=== PATIENT | female | born 1990 | race American Indian/Alaskan Native ===

== ENCOUNTER → 2018-06-17 15:22 | Outpatient (CLI) | payer OTHER, SELFPAY ==
[2018-06-17 16:37] LABS: HCG Quantitative /Beta subunit 2097.1 mIU/mL
== END ==
PROVIDERS: PCP Specialist; Visit Provider Specialist
DX: O20.9 Hemorrhage in early pregnancy, unspecified (principal)
CPT/HCPCS: 36415; 84702

== ENCOUNTER → 2018-06-19 09:47 | Outpatient (CLI) | payer OTHER, SELFPAY ==
[2018-06-19 11:14] LABS: HCG Quantitative /Beta subunit 1164.6 mIU/mL
== END ==
PROVIDERS: PCP Specialist; Visit Provider Specialist
DX: O20.9 Hemorrhage in early pregnancy, unspecified (principal)
CPT/HCPCS: 36415; 84702

== ENCOUNTER → 2019-01-18 12:00 | Outpatient (CLI) | payer OTHER, MEDICAID, SELFPAY ==
[2019-01-22 11:37] LABS: AFP, Serum 32.6 ng/mL; Calc Gestational Age 17.4; Cigarette Smoker NOT GIVEN; Donated Egg NOT GIVEN; Donor Egg Age NOT GIVEN; Estriol, Free 0.88 ng/mL; Inhibin A, Dimeric 151 pg/mL; Maternal Ethnicity OTHER; Maternal Weight 234 lbs; Number of Fetuses NOT GIVEN; Previous Pregnancy Down Syndro NOT GIVEN; hCG, MoM 1.29
== END ==
PROVIDERS: PCP Specialist; Visit Provider Specialist
DX: Z34.02 Encounter for supervision of normal first pregnancy, second trimester (principal); Z3A.17 17 weeks gestation of pregnancy
CPT/HCPCS: 36415; 82105; 82677; 84702; 86336

== ENCOUNTER → 2019-02-16 09:21 | Outpatient (CLI) | payer OTHER, MEDICAID, SELFPAY ==
[2019-02-16 10:53] LABS: Appearance Urine UA CLEAR; Bilirubin Urine UA NEGATIVE (NEGATIVE); Color Urine UA YELLOW; Glucose Urine UA NEGATIVE (Negative); Ketones Urine UA NEGATIVE (NEGATIVE); Leukocyte Esterase Urine UA NEGATIVE (NEGATIVE); Nitrite Urine UA NEGATIVE (Negative); Occult Blood Urine UA NEGATIVE (Negative); Protein Urine UA NEGATIVE (Negative); Specific Gravity Urine UA 1.015 (1.000-1.035); Urobilinogen Urine UA 0.2 E.U./dL (0.2)
[2019-02-16 11:09] LABS: Add Manual Diff / Slide Review NO; Basophils Absolute Auto 0 /uL (0-100); Basophils Percent Auto 0.3 % (0-2); Eosinophils Absolute Auto 0 /uL (0-450); Eosinophils Percent Auto 0.4 % (2-4); Hematocrit 38.6 % (36-46); Hemoglobin 13.3 g/dL (12.0-16.0); Lymphocytes Absolute Auto 1400 /uL (1100-4500); Lymphocytes Percent Auto 14.2 % (25-40); Mean Corpuscular HGB Conc 34.5 % (30-36); Monocytes Absolute Auto 500 /uL (0-900); Monocytes Percent Auto 5.4 % (3-14); Neutrophils Absolute Auto 7900 /uL (1500-7000); Neutrophils Percent Auto 79.7 % (50-75); Platelet Count 284 X10^3/uL (150-400); Red Blood Cell Count 4.28 X10^6/uL (4.0-5.2); Red Cell Distribution Width 13.8 % (11.6-14.8); White Blood Cell Count 9.9 X10^3/uL (4.5-11.0)
[2019-02-16 11:26] LABS: GTT (PREG) 1 Hour PP 50gm Dose 66 mg/dL (76-139)
[2019-02-16 11:58] LABS: Hepatitis B Surface Antigen NEGATIVE s/c (NEGATIVE); Rubella Antibody IgG 25.1 IU/mL (>15)
[2019-02-16 12:14] LABS: HIV 1 and 2 Antibody NEGATIVE (NEGATIVE); Hep C Virus Ab w/Reflex Quant NEGATIVE s/c (NEGATIVE)
[2019-02-17 22:49] LABS: RPR Screen Nonreactive (Nonreactive)
== END ==
PROVIDERS: PCP Specialist; Visit Provider Specialist
DX: Z34.92 Encounter for supervision of normal pregnancy, unspecified, second trimester (principal)
CPT/HCPCS: 36415; 80055; 81003; 82950; 85014; 85018; 86703; 86787; 86803; 86850; 86900; 86901; 87086

== ENCOUNTER → 2019-04-26 11:03 | Outpatient (ROUT) | payer OTHER, MEDICAID, SELFPAY ==
[2019-04-26 11:11] LABS: Add Manual Diff / Slide Review NO; Basophils Absolute Auto 0 /uL (0-100); Basophils Percent Auto 0.3 % (0-2); Eosinophils Absolute Auto 100 /uL (0-450); Eosinophils Percent Auto 1.2 % (2-4); Hematocrit 40.1 % (36-46); Hemoglobin 13.5 g/dL (12.0-16.0); Lymphocytes Absolute Auto 1600 /uL (1100-4500); Mean Corpuscular HGB Conc 33.6 % (30-36); Mean Corpuscular Volume 89.4 fL (80-100); Monocytes Absolute Auto 600 /uL (0-900); Monocytes Percent Auto 5.5 % (3-14); Neutrophils Absolute Auto 7900 /uL (1500-7000); Platelet Count 288 X10^3/uL (150-400); Red Blood Cell Count 4.49 X10^6/uL (4.0-5.2); White Blood Cell Count 10.3 X10^3/uL (4.5-11.0)
[2019-04-26 11:17] LABS: Alanine Aminotransferase 15 IU/L (9-52); Albumin 2.8 g/dL (3.5-5.0); Albumin Globulin Ratio 0.8 (1.0-2.8); Alkaline Phosphatase 124 U/L (38-126); Aspartate Aminotransferase 21 IU/L (14-36); Bilirubin Total 0.7 mg/dL (0.2-1.3); Blood Urea Nitrogen 7 mg/dL (7-17); Calcium 8.4 mg/dL (8.4-10.2); Carbon Dioxide 20 mmol/L (22-32); Chloride 111 mmol/L (98-107); Estimated Glomerular Filt Rate > 60.0 mL/min (>60); Globulin 3.3 g/dL (1.7-4.1); Glucose 84 mg/dL (70-100); HEMOLYSIS < 15 (0-50); Potassium 4.1 mmol/L (3.4-5.1); Sodium 136 mmol/L (137-145); Total Protein 6.1 g/dL (6.3-8.2)
== END ==
PROVIDERS: PCP Specialist; Visit Provider Physician Assistant
DX: O13.9 Gestational [pregnancy-induced] hypertension without significant proteinuria, unspecified trimester (principal)
CPT/HCPCS: 80053; 84550; 85025

== ENCOUNTER 2019-05-03 13:29 | Outpatient (CLI) | payer OTHER, MEDICAID, SELFPAY | END 2019-05-03 14:05 | disposition home or self-care (01) | LOC: LABOR 14:06 → OB 05-05 12:44 | PROVIDERS: PCP Specialist; Visit Provider Specialist | DX: O26.893 Other specified pregnancy related conditions, third trimester (principal); R10.9 Unspecified abdominal pain; Z3A.32 32 weeks gestation of pregnancy | CPT/HCPCS: 59025; G0378; G0379 ==

== ENCOUNTER → 2019-06-02 10:51 | Outpatient (CLI) | payer MEDICAID, OTHER, SELFPAY ==
[2019-06-03 13:32] LABS: Strep Grp B PCR POS for Grp B Strep
== END ==
PROVIDERS: PCP Specialist; Visit Provider Specialist
DX: Z34.03 Encounter for supervision of normal first pregnancy, third trimester (principal); Z3A.36 36 weeks gestation of pregnancy
CPT/HCPCS: 87186; 87653

== ENCOUNTER 2019-06-24 08:42 | Inpatient (IN) | payer OTHER, MEDICAID, SELFPAY ==
[2019-06-24 10:25] LABS: Add Manual Diff / Slide Review NO; Basophils Absolute Auto 0 /uL (0-100); Basophils Percent Auto 0.4 % (0-2); Eosinophils Absolute Auto 0 /uL (0-450); Eosinophils Percent Auto 0.1 % (2-4); Hemoglobin 12.6 g/dL (12.0-16.0); Lymphocytes Absolute Auto 1300 /uL (1100-4500); Lymphocytes Percent Auto 12.3 % (25-40); Mean Corpuscular HGB Conc 33.2 % (30-36); Mean Corpuscular Hemoglobin 27.2 PG (26-34); Monocytes Absolute Auto 400 /uL (0-900); Monocytes Percent Auto 3.8 % (3-14); Neutrophils Absolute Auto 8900 /uL (1500-7000); Neutrophils Percent Auto 83.4 % (50-75); Platelet Count 285 X10^3/uL (150-400); Red Blood Cell Count 4.63 X10^6/uL (4.0-5.2); Red Cell Distribution Width 13.8 % (11.6-14.8); White Blood Cell Count 10.7 X10^3/uL (4.5-11.0)
[2019-06-24] MEDS: CLINDAMYCIN 900 MG/50 ML PIGGYBACK 50 MG IV (10:30)
--- NOTE | 2019-06-24 10:35 | PM.OBHP.1 ---
OB HPI Date/Time Date of admission: 06/24/19 Date Patient Seen: 06/24/19 Time Patient Seen: 10:36 History of Present Condition Chief complaint: obs of labor : 4 Para: 1 Estimated Date of Delivery: 06/25/19 Estimated Gestational Age (weeks): 39 Narrative: Ilana Marsh is a 28 year old female admitted in active labor History of Present care: good care, initiated at week # (13), number of visits (11) and pounds weight gain (23) Dating criteria: LMP confirmed by 1st trimester US Ultrasounds: normal mid trimester US Obstetrical complications: none Medical complications: none Preadmission Labs Blood type: O (+) positive -: Antibody screen: negative, GBS status: positive, HBsAG: negative, HIV: negative and RPR/VDLR: negative -: Chlamydia screen: not detected and Gonorrhea screen: not detected -: Rubella: immune and Varicella: immune HCAB: negative PAP: Normal Quad screen: Normal 1 hr GTT: 66 Prior (ies) History: 07/2016 and 03/2018 SAB 10/05/17 6 lb 11 oz male vaginal delivery Evaluation Evaluation Laboratory results: Laboratory Tests 06/24/19 10:15 WBC 10.7 RBC 4.63 Hgb 12.6 Hct 38.0 MCV 82.0 MCH 27.2 MCHC 33.2 RDW 13.8 Plt Count 285 Neut % (Auto) 83.4 H Lymph % (Auto) 12.3 L [place] % (Auto) 3.8 Eos % (Auto) 0.1 L Baso % (Auto) 0.4 Neut # (Auto) 8900 H Lymph # (Auto) 1300 [place] # (Auto) 400 Eos # (Auto) 0 Baso # (Auto) 0 PFSH Medical History (Updated 06/23/18 @ 17:18 by Fang Gallo) Anxiety (Chronic) Surgical History (Updated 06/23/18 @ 17:18 by Fang Gallo) History of tonsillectomy (Resolved 02/2016) Social History Smoking Status: Current every day smoker Social History Smoking Status: Current every day smoker Meds Home Medications and Allergies Home Medications Medication Instructions Recorded Confirmed Type Vitamins (PRENAVITE) 1 tab PO QDAY #0 tab 08/17/16 History Allergies Allergy/AdvReac Type Severity Reaction Status Date / Time amoxicillin Allergy Unknown Hives Unverified 08/13/18 16:26 Sulfa (Sulfonamide Allergy Unknown Hives Unverified 08/13/18 16:26 Antibiotics) Review of Systems Review of Systems Narrative: Patient denies leakage of fluid. No signs or symptoms of preeclampsia. Good movement. ROS Unobtainable: All systems reviewed & are unremarkable except as noted in HPI and below Exam Vital Signs (past 8 hours): Blood pressure 106/72, pulse 73 Narrative Exam Narrative: HEENT exam within normal limits. Lungs are clear to auscultation and percussion. Heart is regular rate and rhythm no S3-S4 or murmurs. Abdomen is soft, nontender. Abdomen is gravid. Extremities with trace edema and nontender. Objective Labs Result Diagrams: 06/24/19 10:15 Labs: Laboratory Results - last 24 hr 06/24/19 10:15 WBC 10.7 RBC 4.63 Hgb 12.6 Hct 38.0 MCV 82.0 MCH 27.2 MCHC 33.2 RDW 13.8 Plt Count 285 Neut % (Auto) 83.4 H Lymph % (Auto) 12.3 L [place] % (Auto) 3.8 Eos % (Auto) 0.1 L Baso % (Auto) 0.4 Neut # (Auto) 8900 H Lymph # (Auto) 1300 [place] # (Auto) 400 Eos # (Auto) 0 Baso # (Auto) 0 Assessment and Plan Assessment and Plan Assessment and Plan narrative: Term in active labor. Patient with positive group B strep culture with penicillin allergy so receiving clindamycin.
--- NOTE | 2019-06-24 13:32 | P.PCNOB_ITS ---
Labor & Delivery Delivery date: 06/24/19 Intrapartal events: None Cervical ripening method: none Induction method: none Delivery monitor: external FHT and external uterine Route of delivery: L&D Laceration Description: None Estimated blood loss (mL): 150 Anesthesia type: Epidural Narrative: Patient arrived in Labor and delivery in active labor. She progressed normally. heart tones category 1 to category 2 throughout labor. She delivered spontaneously, over an intact perineum. Double nuchal cord was released after delivery the baby. The infant was placed on the maternal abdomen. After the cord stopped pulsating the cord was clamped, cut, and cord bloods obtained. The placenta delivered spontaneously, intact, with 3 vessels. Both and mother doing well. [place] Baby 1: gender: Female Presentation: vertex position: Right Occiput Anterior Placenta delivery description: Spontaneous cord vessel description: Nuchal Cord (twice) score (1 min): 8 score (5 min): 9 Plan for aftercare: Routine care
[2019-06-24 14:30] VITALS: BP 114/60
[2019-06-24] MEDS: IBUPROFEN 600 MG TABLET PO ×2 (15:00→20:10)
[2019-06-25] MEDS: IBUPROFEN 600 MG TABLET PO ×2 (02:12→08:22)
--- NOTE | 2019-06-25 07:50 | PM.OBDS.1 ---
Discharge Providers Provider Date of admission: 06/24/19 08:42 Discharge Date: 06/25/19 Primary care physician: Esther Reddy MD Consults: 06/24/19 14:29 Consult to Coffee Maker Servicer Routine Comment: Discharge provider: Esther Reddy MD Summary Hospital Course Date Patient Seen: 06/25/19 Time Patient Seen: 07:50 Procedures: Epidural catheter, vaginal delivery Hospital Course: Patient arrived on Labor and delivery in active labor. She received an epidural catheter for pain control. She had a vaginal delivery with no lacerations. Both infant mother doing well. Blood pressure 108/77, pulse 69, temperature 97.4?. Patient's abdomen is soft, nontender. Uterus is firm, at U, nontender. Mild lochia. Extremities without edema and nontender. Patient is Rh positive and rubella immune Peripartum Data Delivery Method: Natural Vaginal Laceration description: None Procedures: Epidural catheter, vaginal delivery complications: none 1: Gender: Female Disposition of : home Discharge Diagnosis (1) Vaginal delivery: Status: Acute (2) Acute blood loss anemia: Status: Acute Status at Discharge Cognitive/behavioral status at discharge: oriented Functional status at discharge: independent ambulation Overall status at discharge: patient is progressing back to baseline Time Spent with Patient Time attestation: Total time spent providing and/or coordinating discharge services: Time spent: Less than 30 minutes Objective Labs Result Diagrams: 06/25/19 06:32 Labs: Laboratory Results - last 24 hr 06/24/19 06/24/19 06/25/19 10:15 10:15 06:32 WBC 10.7 RBC 4.63 Hgb 12.6 10.0 L Hct 38.0 30.0 L MCV 82.0 MCH 27.2 MCHC 33.2 RDW 13.8 Plt Count 285 Neut % (Auto) 83.4 H Lymph % (Auto) 12.3 L [place] % (Auto) 3.8 Eos % (Auto) 0.1 L Baso % (Auto) 0.4 Neut # (Auto) 8900 H Lymph # (Auto) 1300 [place] # (Auto) 400 Eos # (Auto) 0 Baso # (Auto) 0 Blood Type O Positive Antibody Screen Negative Discharge Plan Discharge Plan Patient Disposition: Home Discharge Med Rec/Prescriptions Prescriptions: New ibuprofen 600 mg Tablet 600 mg PO Q6HR PRN (Reason: Pain, Mild (1-3)) Qty: 20 RF: 0 ferrous gluconate 324 mg (37.5 mg iron) tablet 324 mg PO DAILY Qty: 30 RF: 0 Continued Vitamins (PRENAVITE) 1 tab PO QDAY Qty: 0 RF: 0 Follow up/Referrals: Esther Reddy MD [Primary Care Provider] - 1 Month Provider Discharge Instructions Diet: Regular Activity: Nothing in vagina for 4 weeks Skin/Wound/Dressing Care Report to your healthcare provider any signs of infection, such as:: chills, fever and increased pain Discharge Data Primary Care Provider: Esther Reddy Attending Provider: Esther Reddy Admit Date/Time: 06/24/19 08:42
[2019-06-25 09:52] VITALS: BP 119/86; PULSE 80; RESP 16; TEMP 36.4
== END 2019-06-25 14:35 | disposition home or self-care (01) | DRG 806 ==
PROVIDERS: Admitting Provider Specialist; PCP Specialist; Visit Provider Specialist
DX: O99.824 Streptococcus B carrier state complicating childbirth (principal); D62 Acute posthemorrhagic anemia; Z37.0 Single live birth; O69.81X0 Labor and delivery complicated by cord around neck, without compression, not applicable or unspecified; O99.334 Smoking (tobacco) complicating childbirth; Z3A.39 39 weeks gestation of pregnancy
CPT/HCPCS: 01967; 36415; 59050; 59400; 85014; 85018; 85025; 86850; 86900; 86901; G0379

== ENCOUNTER → 2020-07-21 14:48 | Outpatient (CLI) | payer OTHER, MEDICAID, SELFPAY ==
--- NOTE | 2020-07-21 | DI.US.S_ITS ---
PROCEDURE: US PELVIC COMPLETE INDICATIONS: Right lower quadrant pain TECHNIQUE: Real-time scanning was performed of the pelvic organs, with image documentation. Additional endovaginal scanning was necessary due to incomplete visualization of the adnexal and endometrial structures by transabdominal scanning. COMPARISON: [facility], US, PELVIC COMPLETE, 11/21/2017, 11:29. FINDINGS: Transabdominal scanning: Limited scanning through the kidneys shows no hydronephrosis. No pathologic free abdominal or pelvic fluid. Endovaginal scanning: Uterus: Uterus is normal in size at 9.1 x 3.3 x 5.2 cm. The endometrium measures 7.2 mm in combined thickness. Ovaries: Simple right ovarian cyst measuring up to 1.7 cm, otherwise ovaries are normal bilaterally. No adnexal masses seen. The appendix is not visualized. IMPRESSION: 1. 1.7 cm simple right ovarian cyst; otherwise no source for pelvic pain identified. Dictated by: Ervin AYON Interpreted: Uvaldo Bryant MD on 07/21/2020 at 15:50 Approved by: Uvaldo Bryant M.D. on 07/21/2020 at 16:35
== END ==
PROVIDERS: PCP Specialist; Referring Provider Specialist; Visit Provider Family Medicine
DX: R10.31 Right lower quadrant pain (principal); N83.291 Other ovarian cyst, right side
CPT/HCPCS: 76856

== ENCOUNTER → 2020-08-31 16:43 | Outpatient (CLI) | payer OTHER, MEDICAID, SELFPAY ==
[2020-08-31 16:47] LABS: Bacteria Urine None Seen
[2020-08-31 17:39] LABS: Appearance Urine UA CLEAR; Bilirubin Urine UA NEGATIVE (NEGATIVE); Color Urine UA YELLOW; Glucose Urine UA NEGATIVE (Negative); Ketones Urine UA NEGATIVE (NEGATIVE); Leukocyte Esterase Urine UA TRACE (NEGATIVE); Nitrite Urine UA NEGATIVE (Negative); Occult Blood Urine UA TRACE-LYSED (Negative); Protein Urine UA NEGATIVE (Negative); Specific Gravity Urine UA 1.025 (1.000-1.035); Urobilinogen Urine UA 0.2 E.U./dL (0.2)
[2020-08-31 17:41] LABS: pH Urine UA 5.5 (4.5-8.0)
[2020-08-31 18:05] LABS: Amorphous Sediment Urine 1+; Culture Indicated Urine Specimen Cultured; RBC Urine 1-5/HPF (0-5/HPF); WBC Urine 10-30/HPF (0-5/HPF)
== END ==
PROVIDERS: PCP Specialist; Referring Provider Specialist; Visit Provider Specialist
DX: N39.0 Urinary tract infection, site not specified (principal)
CPT/HCPCS: 81001; 87077; 87086; 87186

== ENCOUNTER → 2021-04-13 14:05 | Outpatient (CLI) | payer MEDICAID, OTHER, SELFPAY ==
[2021-04-14 08:43] LABS: RPR Screen Non Reactive (Non Reactive)
[2021-04-14 12:31] LABS: Hepatitis B Surface Antigen NEGATIVE s/c (NEGATIVE)
[2021-04-14 13:00] LABS: HIV 1 & 2 Ab/Ag 4th Gen Combo NEGATIVE (NEGATIVE); Hep C Virus Ab w/Reflex Quant NEGATIVE s/c (NEGATIVE)
== END ==
PROVIDERS: PCP Physician Assistant; Referring Provider Obstetrics & Gynecology; Visit Provider Obstetrics & Gynecology
DX: A59.9 Trichomoniasis, unspecified (principal)
CPT/HCPCS: 36415; 86592; 86803; 87210; 87340; 87389

== ENCOUNTER → 2021-05-11 10:43 | Outpatient (CLI) | payer MEDICAID, OTHER, SELFPAY ==
[2021-05-12 12:54] LABS: Candida species Negative (Negative); Gardnerella vaginalis Negative (Negative); Trichomoas vaginalis Negative (Negative)
[2021-05-15 06:52] LABS: Chlamydia trachomatis Negative (Negative); Mycoplasma genitalium Positive (Negative); Neisseria gonorrhoeae Negative (Negative)
== END ==
PROVIDERS: PCP Physician Assistant; Visit Provider Obstetrics & Gynecology
DX: A59.9 Trichomoniasis, unspecified (principal); N89.8 Other specified noninflammatory disorders of vagina; Z11.3 Encounter for screening for infections with a predominantly sexual mode of transmission; Z20.2 Contact with and (suspected) exposure to infections with a predominantly sexual mode of transmission
CPT/HCPCS: 87070; 87205; 87480; 87491; 87510; 87563; 87591; 87660

== ENCOUNTER → 2021-11-27 12:04 | Outpatient (CLI) | payer MEDICAID, OTHER, SELFPAY ==
[2021-11-28 14:36] LABS: Candida species Negative (Negative); Gardnerella vaginalis Negative (Negative); Trichomoas vaginalis Negative (Negative)
[2021-11-29 11:30] LABS: Chlamydia trachomatis Negative (Negative); Mycoplasma genitalium Negative (Negative); Neisseria gonorrhoeae Negative (Negative)
== END ==
PROVIDERS: PCP Physician Assistant; Visit Provider Obstetrics & Gynecology
DX: A49.3 Mycoplasma infection, unspecified site (principal); A59.9 Trichomoniasis, unspecified; N76.0 Acute vaginitis; Z11.3 Encounter for screening for infections with a predominantly sexual mode of transmission
CPT/HCPCS: 87070; 87205; 87480; 87491; 87510; 87563; 87591; 87660

== ENCOUNTER → 2021-12-07 08:56 | Outpatient (CLI) | payer OTHER, MEDICAID, SELFPAY | PROVIDERS: PCP Physician Assistant; Referring Provider Obstetrics & Gynecology; Visit Provider Obstetrics & Gynecology | DX: R10.2 Pelvic and perineal pain (principal); Z53.8 Procedure and treatment not carried out for other reasons ==

== ENCOUNTER → 2022-04-01 09:48 | Outpatient (CLI) | payer OTHER, MEDICAID, SELFPAY ==
--- NOTE | 2022-04-01 09:49 | DI.US.S_ITS ---
LIMITED ULTRASOUND OF RIGHT BREAST: 04/01/2022 CLINICAL: Nipple discharge, right breast, not bloody. No prior exams were available for comparison. Color flow ultrasound of the right breast retroareolar was performed. Guillen scale images of the real-time examination were reviewed. No significant abnormalities were seen sonographically in the right breast. IMPRESSION: NEGATIVE There is no sonographic evidence of malignancy. There is no abnormality seen in the right breast to correspond with the non-bloody discharge from the nipple, which the patient reports has resolved. Clinical followup is recommended. This exam was interpreted at Station ID: [id number]. Electronically Signed By: Chidi Noble M.D. ar/:04/01/2022 10:27:26 letter sent: Clinical Evaluation Ultrasound BI-RADS: 1 Negative
== END ==
PROVIDERS: PCP Physician Assistant; Referring Provider Obstetrics & Gynecology; Visit Provider Obstetrics & Gynecology
DX: N64.52 Nipple discharge (principal)
CPT/HCPCS: 76642

== ENCOUNTER → 2022-11-20 09:46 | Outpatient (CLI) | payer OTHER, SELFPAY ==
--- NOTE | 2022-11-20 09:48 | DI.US.S_ITS ---
PROCEDURE: US ABDOMEN LIMITED INDICATIONS: Right upper quadrant pain TECHNIQUE: Real-time focused scanning was performed of the abdomen, with image documentation. COMPARISON: None. FINDINGS: Normal hepatic parenchymal echogenicity and echotexture. No focal hepatic mass. No intrahepatic or extrahepatic biliary ductal dilatation. Normally distended gallbladder. Approximately 3.5 cm shadowing gallstone in the proximal gallbladder body near the neck. Small gallstones are present in the fundus. No gallbladder wall thickening or pericholecystic fluid. Visualized portions of the pancreas are normal. IMPRESSION: Cholelithiasis with no findings of cholecystitis. Approximately 3.5 cm shadowing gallstone in the proximal gallbladder body near the neck. Dictated by: Cesar Segovia M.D. on 11/20/2022 at 10:12 Approved by: Cesar Segovia M.D. on 11/20/2022 at 10:14
== END ==
PROVIDERS: PCP Physician Assistant; Referring Provider Physician Assistant; Visit Provider Physician Assistant
DX: R10.11 Right upper quadrant pain (principal); K80.20 Calculus of gallbladder without cholecystitis without obstruction
CPT/HCPCS: 76705